=== PATIENT | female | born 1990 | race American Indian/Alaskan Native ===

== ENCOUNTER 2018-05-21 09:58 | Emergency (ER) | payer MEDICAID, OTHER ==
[2018-05-21 10:09] VITALS: BP 116/62
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
[2018-05-21 13:20] LABS: Bilirubin,Urine NEG (Negative); Blood,Urine NEG (Negative); Color,Urine Yellow (Yellow); Mucus,Urine FEW /HPF; Protein,Urine <15 mg/dL mg/dL (Negative); Urobilinogen,Urine < 2.0 mg/dL (<2.0)
[2018-05-21 13:24] LABS: HCG Qualitative,Urine Negative (Negative)
[2018-05-21] MEDS ORDERED: TORADOL IM ONE (14:14)
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
== END 2018-05-21 15:29 | disposition home or self-care (01) ==
LOC: ED 09:58
DX: M54.5 Low back pain (principal); J45.909 Unspecified asthma, uncomplicated; Z90.49 Acquired absence of other specified parts of digestive tract; V89.2XXA Person injured in unspecified motor-vehicle accident, traffic, initial encounter; Y93.89 Activity, other specified; Y92.488 Other paved roadways as the place of occurrence of the external cause; Y99.8 Other external cause status
CPT/HCPCS: 72100; 81001; 81025; 96372; 99283; J1885

== ENCOUNTER 2018-12-02 09:14 | Emergency (ER) | payer OTHER ==
[2018-12-02 09:36] VITALS: BP 119/68
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
== END 2018-12-02 11:10 | disposition home or self-care (01) ==
LOC: ED 09:14
DX: O9A.211 Injury, poisoning and certain other consequences of external causes complicating pregnancy, first trimester (principal); S39.012A Strain of muscle, fascia and tendon of lower back, initial encounter; Z3A.13 13 weeks gestation of pregnancy; J45.909 Unspecified asthma, uncomplicated; Z90.49 Acquired absence of other specified parts of digestive tract; V49.49XA Driver injured in collision with other motor vehicles in traffic accident, initial encounter; Y93.89 Activity, other specified; Y92.488 Other paved roadways as the place of occurrence of the external cause; Y99.8 Other external cause status
CPT/HCPCS: 99282

== ENCOUNTER 2019-05-24 09:12 | Inpatient (IN) | payer MEDICAID ==
[2019-05-24] MEDS ORDERED: LACTATED RINGERS 1,000 ML ONE ×2 (09:38)
[2019-05-24] MEDS ORDERED: METOCLOPRAMIDE 10 MG/2 ML INJ IV ONE (09:56)
[2019-05-24] MEDS ORDERED: BICITRA ORAL LIQD 30ML PO ONE ×2 (09:56→10:15)
[2019-05-24] MEDS ORDERED: FAMOTIDINE 20 MG/2 ML INJ IV ONE (09:56)
[2019-05-24] MEDS ORDERED: LACTATED RINGERS 1,000 ML IV SCH ×2 (10:00→11:00)
[2019-05-24] MEDS ORDERED: OXYTOCIN 20 UNIT/1000ML DRIP 20 UNITS/1,000 ML BAG IV SCH ×3 (10:00→15:00)
[2019-05-24] MEDS ORDERED: ceFAZolin/Water 2 GM/20 ML 2 GM/20 ML SYRINGE IV NR ×2 (10:00→11:00)
--- NOTE | 2019-05-24 10:22 | History and Physical Report ---
History of Present Illness Date of examination: 05/24/19 Date of admission: 05/24/19 09:12 Chief complaint: In the hospital today for a repeat and tubal sterilzation. History of present illness: In the hospital today for a repeat and tubal sterilzation. 38+1wks, IUGR, SHARON 06/06/2019. Past History Past Medical History: no pertinent history Past Surgical History: section - Obstetrical History Expected Date of Delivery: 06/06/19 Actual Gestation: 38 Week(s) 1 Day(s) Medications and Allergies Allergies Allergy/AdvReac Type Severity Reaction Status Date / Time No Known Allergies Allergy Unverified 08/17/13 18:09 Home Medications Medication Instructions Recorded Confirmed Last Taken Type Cyclobenzaprine [Flexeril] 10 mg PO TID PRN #15 tablet 08/17/13 Unknown Rx Ibuprofen [Motrin 800 MG tab] 800 mg PO Q8H PRN #30 tablet 08/17/13 Unknown Rx traMADoL [Ultram 50 MG tab] 50 mg PO Q6HR PRN #30 tablet 08/17/13 Unknown Rx HYDROcodone/APAP 5-325 [[place] 1 each PO Q6HR PRN #20 tablet 09/25/13 Unknown Rx 5/325] Ibuprofen [Motrin] 600 mg PO Q8H PRN #60 tablet 09/25/13 Unknown Rx Sulfamethoxazole/Trimethoprim 1 each PO BID #20 tablet 09/25/13 Unknown Rx [Bactrim Ds] Nitrofurantoin [place]/M-Cryst 100 mg PO Q12HR #14 capsule 10/31/13 Unknown Rx [Macrobid] Ondansetron [Zofran TAB] 4 mg PO Q6H PRN #10 tablet 10/31/13 Unknown Rx Ibuprofen [Motrin] 800 mg PO Q8HR PRN #20 tablet 05/21/18 Unknown Rx Active Meds: Active Medications Citric Acid/Sodium Citrate (Bicitra) 30 ml PO ONCE ONE Stop: 05/24/19 09:57 Famotidine (Pepcid) 20 mg IV ONCE ONE Stop: 05/24/19 09:57 Oxytocin/Sodium Chloride (Pitocin/Ns 20 Unit/1000ml Drip) 20 units in 1,000 mls @ 0 mls/hr IV TITR ASHLI Cefazolin Sodium (Ancef/Sterile Water 2 Gm/20 Ml) 2 gm in 20 mls @ 80 mls/hr IV PREOP NR; Protocol Lactated Ringer's (Lactated Ringers) 1,000 mls @ 2,250 mls/hr IV PREOP ASHLI Stop: 05/25/19 10:27 Metoclopramide HCl (Reglan) 10 mg IV ONCE ONE Stop: 05/24/19 09:57 Review of Systems All systems: negative - Vital Signs Vital signs: Vital Signs Pulse BP 85 122/83 05/24/19 09:29 05/24/19 09:29 Temp Pulse Resp BP Pulse Ox 92 H 120/78 05/24/19 09:39 05/24/19 09:39 - Physical Exam Lungs: Positive: Normal air movement - Obstetrical FHR: auscultation normal Results All other labs normal. Assessment and Plan - Patient Problems (1) IUGR (intrauterine growth restriction) Current Visit: Yes Status: Acute (2) Previous delivery affecting Current Visit: Yes Status: Acute (3) Request for sterilization Current Visit: Yes Status: Acute Plan to address problem: After informed consent, the patient will undergo a repeat with bilateral salpingectomy.
[2019-05-24 10:45] LABS: Basophils % (Auto) 0.3 % (0.0-1.8); Eosinophils # (Auto) 0.1 K/mm3 (0.0-0.4); Eosinophils % (Auto) 1.4 % (0.0-4.3); Hemoglobin 12.5 gm/dl (10.1-14.3); Lymphocytes # (Auto) 1.7 K/mm3 (1.2-5.4); Lymphocytes % (Auto) 23.9 % (13.4-35.0); Mean Corpuscular HGB Conc 33 % (30-34); Mean Corpuscular Volume 79 fl (79-97); Monocytes # (Auto) 0.5 K/mm3 (0.0-0.8); Monocytes % (Auto) 7.5 % (0.0-7.3); Platelet Count 215 K/mm3 (140-440); Red Blood Count 4.83 M/mm3 (3.65-5.03); Red Cell Distribution Width 17.2 % (13.2-15.2)
[2019-05-24] MEDS ORDERED: ceFAZolin/STERILE WATER 2 GM/20 ML SYRINGE IV ONE (12:20)
[2019-05-24] MEDS ORDERED: PHENYLEPHRINE/NS 1,000 MCG/10 ML SYRINGE (OR USE) IV ONE (12:30)
[2019-05-24] MEDS ORDERED: ONDANSETRON 4 MG/2 ML INJ ONE (12:30)
[2019-05-24] MEDS ORDERED: WATER FOR IRRIG STERILE 1,500 ML BOTTLE IR ONE (12:30)
[2019-05-24] MEDS ORDERED: KETOROLAC 30 MG/1 ML INJ ONE (12:30)
[2019-05-24] MEDS ORDERED: DEXMEDETOMIDINE 200 MCG/2 ML VIAL IV ONE (12:30)
[2019-05-24] MEDS ORDERED: SODIUM CHLORIDE 0.9% IRR 1,500 ML BOTTLE IR ONE (12:30)
[2019-05-24] MEDS ORDERED: ACETAMINOPHEN 325 MG TAB PO PRN (14:33)
[2019-05-24] MEDS ORDERED: ONDANSETRON 4 MG/2 ML INJ IV PRN ×2 (14:33→14:40)
[2019-05-24] MEDS ORDERED: WITCH HAZEL/ GLYCERIN PAD TP PRN (14:33)
[2019-05-24] MEDS ORDERED: LANOLIN/ZINC/DIMETHICONE (LANSINOH) 7 GM TP PRN (14:33)
[2019-05-24] MEDS ORDERED: NALOXONE 0.4 MG/1 ML INJ IV PRN (14:33)
[2019-05-24] MEDS ORDERED: HYDROcodone/ACETAMINOPHEN 5-325 MG TAB PO PRN (14:33)
[2019-05-24] MEDS ORDERED: HYDROmorphone 1 MG/1 ML INJ IV PRN (14:40)
--- NOTE | 2019-05-24 14:43 | Anesthesia Consultation ---
Anesthesia Consult and Med Hx Date of service: 05/24/19 - Airway Anesthetic Teeth Evaluation: Poor ROM Head & Neck: Adequate Mental/Hyoid Distance: Adequate Mallampati Class: Class II Intubation Access Assessment: Probably Good - Pulmonary Exam CTA: Yes - Cardiac Exam Cardiac Exam: RRR - Pre-Operative Health Status ASA Pre-Surgery Classification: ASA2 Proposed Anesthetic Plan: Spinal - Pulmonary Hx Smoking: No Hx Asthma: Yes (CHILDHOOD) Hx Respiratory Symptoms: No SOB: No COPD: No Home Oxygen Therapy: No Hx Pneumonia: No Hx Sleep Apnea: No - Cardiovascular System Hx Hypertension: No Hx Coronary Artery Disease: No Hx Heart Attack/AMI: No Hx Angina: No Hx Percutaneous Transluminal Coronary Angioplasty (PTCA): No Hx Cardia Arrhythmia: No Hx Pacemaker: No Hx Internal Defibrillator: No Hx Valvular Heart Disease: No Hx Heart Murmur: No Hx Peripheral Vascular Disease: No - Central Nervous System Hx Neuromuscular Disorder: No Hx Seizures: No CVA: No Hx Back Pain: No Hx Psychiatric Problems: No - Gastrointestinal Hx Ulcer: No Hx Gastroesophageal Reflux Disease: No - Endocrine Hx Renal Disease: No Hx End Stage Renal Disease: No Hx Cirrhosis: No Hx Liver Disease: No Hx Insulin Dependent Diabetes: No Hx Non-Insulin Dependent Diabetes: No Hx Thyroid Disease: No Hx Hypothyroidism: No Hx Hyperthyroidism: No - Hematic Hx Anemia: No Hx Sickle Cell Disease: No - Other Systems Hx Alcohol Use: No Hx Substance Use: No Hx Cancer: No Hx Obesity: Yes
--- NOTE | 2019-05-24 14:43 | Operative Report ---
Operative Report Operative Report: Date of surgery: May 24, 2019 Preoperative diagnoses: IUGR, 38+1 weeks gestation, previous section, request for tubal sterilization Postoperative diagnoses: The same. Operation: Lower segment transverse delivery, bilateral salpingectomies. Surgeon:Erika Miles MD Counter Stacker: Sharon Rahman CRNA Anesthesia: Spinal block Estimated blood loss: 400 mL Complications: None Findings: There was a live baby boy in cephalic presentation, with 2 nuchal cords. scores were 8 and 9. weight 6 pounds 1 ounce. The uterus and ovaries were grossly normal. The fallopian tubes were also grossly normal. There was no identifiable adhesions within the lower abdomen and pelvis. The l ower reaches of the greater omentum were palpably normal. Procedure in detail: The patient was taken to the operating room and given a spinal block. Patient was placed in the straight supine position and a Sanz catheter was inserted. The patient was prepped in the abdomen. The drapes were placed. A timeout was done. With the go ahead from the loading unit operator, a Pfannenstiel incision was made. This incision was carried across the subcutaneous layer to the fascia which was also divided transversely. The recti abdominis muscle flaps were stripped from the fascia using a combination of blunt and sharp dissections. The muscles were in the midline to gain access to the anterior parietal peritoneum which was divided after excluding any underlying viscera. The access to the peritoneal cavity was then widened by manual stretching. The bladder blade was applied. The utero vesicle peritoneal flap was divided transversely allowing the bladder to be displaced caudally. The uterine incision was placed in the lower segment transversely. The uterine incision was carried to the decidual layer. The uterine incision was extended on both sides using the bandage scissors. The amniotic sac was ruptured with clear fluid. The head was lifted out of the false maternal pelvis and delivered through the incision using fundal pressure. The airways were bulb suctioned beginning with the mouth. Continuing fundal pressure combined with traction on the mandibular processes of the jaw delivered the rest of the baby. The umbilical cord was double clamped and divided. The baby was carefully transferred to the pediatric team. The placenta was manually removed from the uterine cavity. The uterine cavity was explored and was empty of any placental remnants. The uterine incision was repaired in 2 layers with #1 Vicryl. The surgical line on the uterus was hemostatic. Blood and clots were cleared from the peritoneal cavity. Each fallopian tube was isolated from the meso salpinges by creating and tying off vascular pedicles with subsequent excision of the fallopian tube at the uterine cornua. Hemostasis on the left side was great. Hemostasis at the right uterine cornua was challenging but ultimately was achieved through multiple stitches and subsequent spray of hemo-blast. The anterior parietal peritoneum was repaired with #1 Vicryl. The fascia was repaired with #1 Vicryl. The subcutaneous layer was made hemostatic using the Bovie before the skin was closed subcuticularly with 4-0 Vicryl. There were no complications. The estimated blood loss was 400 mL. All sponges and instrument counts were correct. Patient was safely transferred to the recovery room.
--- NOTE | 2019-05-24 14:44 | Anesthesia Day of Surgery ---
Anesthesia Day of Surgery - Day of Surgery Patient Examined: Yes Patient H&P Reviewed: Yes Patient is NPO: Yes Beta Blockers: No Cardiac Clearance: No Pulmonary Clearance: No Obdulio's Test: N/A
--- NOTE | 2019-05-24 14:49 | XRay Report ---
ABDOMEN 1 VIEW INDICATION / CLINICAL INFORMATION: Sharps count incorrect in OR. COMPARISON: None available. FINDINGS: TUBES / LINES: None. BOWEL GAS PATTERN: No significant abnormality. FREE AIR / EXTRALUMINAL GAS: None seen. ADDITIONAL FINDINGS: No retained surgical instruments/material is identified. IMPRESSION: No radiographic evidence of retained surgical instruments/material. Signer Name: Joseph Magallon MD Signed: 05/24/2019 2:44 PM Workstation Name: [id number]
[2019-05-24] MEDS: MORPHINE 4 MG/1 ML INJ IV PRN ×2 (16:59→22:27)
[2019-05-24] MEDS: KETOROLAC 30 MG/1 ML INJ IV PRN (18:44)
[2019-05-24] MEDS: ceFAZolin/NS 1 GM/50 ML 1 GM/50 ML BAG IV SCH (20:53)
[2019-05-25] MEDS: KETOROLAC 30 MG/1 ML INJ IV PRN ×2 (01:46→08:45)
[2019-05-25] MEDS ORDERED: D5W/LACTATED RINGERS 1,000 ML IV SCH (03:00)
[2019-05-25 04:19] LABS: Hematocrit 36.2 % (30.3-42.9); Hemoglobin 11.8 gm/dl (10.1-14.3)
[2019-05-25] MEDS: ceFAZolin/NS 1 GM/50 ML 1 GM/50 ML BAG IV SCH (04:59)
[2019-05-25] MEDS: MORPHINE 4 MG/1 ML INJ IV PRN (05:00)
[2019-05-25] MEDS ORDERED: PRENATAL VIT27-FE FUMARATE-FOLIC ACID VIT TAB PO SCH (10:00)
[2019-05-25] MEDS ORDERED: HYDROcodone/ACETAMINOPHEN 5-325 MG TAB PO PRN (11:23)
--- NOTE | 2019-05-25 11:26 | Progress Note ---
Assessment and Plan A: POD #1 P: Follow Routine PostOp orders Increase ambulation Subjective - Subjective Date of service: 05/25/19 Patient reports: appetite normal, voiding normally, pain well controlled, ambulating normally [place]: doing well, bottle feeding Objective - Vital Signs Latest vital signs: Vital Signs Temp Pulse Resp BP BP Pulse Ox 05/25/19 09:40 20 05/25/19 08:45 20 05/25/19 08:25 97.8 F 96 H 18 126/81 100 05/25/19 05:27 98.1 F 70 18 104/45 97 05/24/19 23:40 98.3 F 72 18 104/53 100 05/24/19 20:00 97.8 F 64 18 115/65 100 05/24/19 16:26 97.2 F L 75 18 125/67 100 05/24/19 15:29 62 17 102/63 99 05/24/19 15:14 63 16 108/58 99 05/24/19 14:59 64 19 109/60 99 05/24/19 14:44 59 L 19 92/48 99 05/24/19 14:39 69 18 102/54 99 05/24/19 14:34 97.7 F 81 18 104/60 99 Intake and Output 05/24/19 05/25/19 05/25/19 22:59 06:59 14:59 Intake Total 560 Output Total 325 600 Balance 235 -600 Intake: IV 50 ANCEF/NS 1 GM/50 ML 1 gm 50 In 50 ml @ 100 mls/hr IV Q8H [facility] Rx#:[id number] Oral 260 Intake, Free Water 250 Output: Urine 325 600 Indwelling Catheter 250 600 Other: Total, Intake Amount 260 Total, Output Amount 250 600 - Exam Breasts: Present: normal Cardiovascular: Present: Regular rate Lungs: Present: Clear to auscultation, Normal air movement Abdomen: Present: normal appearance, soft, normal bowel sounds Uterus: Present: normal, firm, fundal height below umbilicus Extremities: Present: normal Incision: Present: dry, dressed
[2019-05-25] MEDS: IBUPROFEN 800 MG TAB PO PRN ×2 (12:10→17:50)
--- NOTE | 2019-05-25 12:22 | Post Anesthesia Evaluation ---
- Post Anesthesia Evaluation Patient Participated: Yes Airway Patent: Yes Stable Respiratory Function: Yes Nausea/Vomiting: No Temp > 96.8F: Yes Pain Manageable: Yes Adequeate Hydration: Yes Anesthesia Complications: No Block Receding Appropriately: Yes Patient on Ventilator: No
[2019-05-25] MEDS: SIMETHICONE 80 MG CHEW TAB PO PRN (15:36)
[2019-05-25] MEDS: oxyCODONE /ACETAMINOPHEN 5-325MG TAB PO PRN (22:05)
[2019-05-26] MEDS: IBUPROFEN 800 MG TAB PO PRN ×3 (01:23→17:02)
[2019-05-26] MEDS: oxyCODONE /ACETAMINOPHEN 5-325MG TAB PO PRN ×3 (05:52→20:44)
[2019-05-26] MEDS: FERROUS SULFATE 325 MG TAB PO SCH (09:37)
--- NOTE | 2019-05-26 10:48 | Progress Note ---
Assessment and Plan A: POD #2 Stable P: Follow Routine PostOp orders D/C Home in the AM RTO in One Week Subjective - Subjective Date of service: 05/26/19 Patient reports: appetite normal, voiding normally, pain well controlled, flatus, ambulating normally [place]: doing well, bottle feeding Objective - Vital Signs Latest vital signs: Vital Signs Temp Pulse Resp BP Pulse Ox 05/26/19 09:37 20 05/26/19 08:23 97.4 F L 95 H 20 125/73 98 05/25/19 23:12 97.9 F 81 16 108/69 98 05/25/19 16:57 98.5 F 98 H 18 137/87 99 05/25/19 12:15 97.3 F L 82 18 118/70 98 Intake and Output 05/25/19 05/26/19 05/26/19 22:59 06:59 14:59 Intake Total 480 420 360 Output Total 300 Balance 180 420 360 Intake: Oral 360 Intake, Free Water 480 420 Output: Urine 300 Void 300 Other: Total, Intake Amount 360 Total, Output Amount 300 # Voids Void 1 1 1 - Exam Breasts: Present: normal Cardiovascular: Present: Regular rate Lungs: Present: Clear to auscultation, Normal air movement Abdomen: Present: normal appearance, soft, normal bowel sounds Uterus: Present: normal, firm, fundal height at umbilicus Extremities: Present: normal Incision: Present: normal, dry, intact
--- NOTE | 2019-05-26 10:49 | Discharge Summary ---
Providers - Providers Date of Admission: 05/24/19 09:12 Date of discharge: 05/27/19 Attending physician: JUSTINA MORFIN MD Primary care physician: JUSTINA MORFIN MD Hospitalization Reason for admission: section Delivery: Procedure: bilateral tubal ligation, repeat low transverse Episiotomy: none Laceration: none Incision: normal, dry, intact Other procedures: none complications: none Discharge diagnosis: IUP at term delivered [place] baby: male Condition at discharge: Good Disposition: [id number] TO HOME OR SELFCARE Plan - Provider Discharge Summary Activity: routine, no sex for 6 weeks, no heavy lifting 4 weeks, no strenuous exercise Diet: routine Instructions: routine Additional instructions: [] Smoking cessation referral if applicable(refer to patient education folder for contact #) [] Refer to [facility]'s [facility] Booklet Call your doctor immediately for: * Fever > 100.5 * Heavy vaginal bleeding ( >1 pad per hour) * Severe persistent headache * Shortness of breath * Reddened, hot, painful area to leg or breast * Drainage or odor from incision. * Keep incision clean and dry at all times and follow doctor's instructions regarding bathing/showering - Follow up plan Follow up: JUSTINA MORFIN MD [Primary Care Provider] - 7 Days
[2019-05-26] MEDS: SIMETHICONE 80 MG CHEW TAB PO PRN (17:07)
[2019-05-27] MEDS: IBUPROFEN 800 MG TAB PO PRN (00:43)
[2019-05-27] MEDS: oxyCODONE /ACETAMINOPHEN 5-325MG TAB PO PRN ×2 (04:27→10:20)
[2019-05-27] MEDS: FERROUS SULFATE 325 MG TAB PO SCH (10:20)
[2019-05-27 13:34] VITALS: BP 110/57
== END 2019-05-27 13:50 | disposition home or self-care (01) | DRG 765 ==
LOC: APU 09:12 → OB 16:32
PROVIDERS: ADMIT Obstetrics & Gynecology; ATTEND Obstetrics & Gynecology
PROC: 10D00Z1 Extraction of Products of Conception, Low, Open Approach (ICD-10-PCS; principal; 2019-05-24)
PROC: 0UB70ZZ Excision of Bilateral Fallopian Tubes, Open Approach (ICD-10-PCS; 2019-05-24)
DX: O99.214 Obesity complicating childbirth (principal); O36.5930 Maternal care for other known or suspected poor fetal growth, third trimester, not applicable or unspecified; O99.52 Diseases of the respiratory system complicating childbirth; O34.211 Maternal care for low transverse scar from previous cesarean delivery; J45.909 Unspecified asthma, uncomplicated; E66.9 Obesity, unspecified; Z3A.38 38 weeks gestation of pregnancy; Z37.0 Single live birth; Z79.899 Other long term (current) drug therapy; Z30.2 Encounter for sterilization
CPT/HCPCS: 36415; 74018; 85014; 85018; 85025; 86850; 86900; 86901; 88302; G0378; J0690; J1885; J2270; J2370; J2405; J2590; J2765; J3490; J7120; J7121